=== PATIENT | female | born 1935 | race Caucasian/White ===

== ENCOUNTER 2020-11-18 08:43 | Emergency (ER) | payer MEDICARE, OTHER ==
[~2020-11-18] VITALS: Ht 167.6 cm; Wt 89.8 kg
--- NOTE | 2020-11-18 08:50 | NUR ---
CHILANGO KEATING from [employer] "More Altered than usual. BS-147". PT NON VERBAL EYES OPEN. VSS. RR EVEN & UNLABORED. PLACED ON ASSISTANT PROFESSOR, SR. PT SEEN & EVAL'D BY DR. REID. WILL CONT TO MONITOR.
[2020-11-18] MEDS ORDERED: AMLO10TA4 PO (09:09)
[2020-11-18] MEDS ORDERED: ACET-2605 PO (09:09)
[2020-11-18] MEDS ORDERED: NA P133E RC (09:09)
[2020-11-18] MEDS ORDERED: DOCU-141 PO (09:09)
[2020-11-18] MEDS ORDERED: THIA100T88 PO (09:09)
[2020-11-18] MEDS ORDERED: GLIP5TAB13 PO ×2 (09:09)
[2020-11-18] MEDS ORDERED: FOLI0.4T6 PO (09:09)
[2020-11-18] MEDS ORDERED: CEFD300C3 PO (09:09)
[2020-11-18] MEDS ORDERED: MAGN400O6 PO (09:09)
[2020-11-18] MEDS ORDERED: MELA3TAB41 PO (09:09)
[2020-11-18] MEDS ORDERED: BISA10SU11 RC (09:09)
[2020-11-18] MEDS ORDERED: SENN-175 PO (09:09)
[2020-11-18] MEDS ORDERED: GABA-532 PO (09:09)
[2020-11-18] MEDS ORDERED: INSU100V28 IJ (09:09)
[2020-11-18] MEDS ORDERED: LEVO125T8 PO (09:09)
[2020-11-18] MEDS ORDERED: ATOR10TA PO (09:09)
[2020-11-18] MEDS ORDERED: [UNRECOGNIZED DRUG - CODE] TP (09:09)
--- NOTE | 2020-11-18 09:09 | NUR ---
PT TO CT VIA [facility].
[2020-11-18 09:13] LABS: BASOPHILS % (AUTO) 0.2 % (0.0-2.0); EOSINOPHILS % (AUTO) 1.1 % (0.0-6.0); HEMATOCRIT 33 % (33-45); LYMPHOCYTES # (AUTO) 1.4 /CMM (0.8-4.8); LYMPHOCYTES % (AUTO) 9.9 % (20.0-44.0); MEAN CORPUSCULAR HGB CONC 33 g/dl (31.0-36.0); MEAN CORPUSCULAR VOLUME 88 fL (82-100); MONOCYTES # (AUTO) 0.7 /CMM (0.1-1.30); MONOCYTES % (AUTO) 5.2 % (2.0-12.0); NEUTROPHILS # (AUTO) 11.3 /CMM (1.8-8.9); NEUTROPHILS % (AUTO) 83.6 % (43.0-81.0); PLATELET COUNT (AUTO) 239 /CMM (150-450); RED BLOOD CELL COUNT(AUTO) 3.81 MIL/uL (4.0-5.2); WHITE BLOOD COUNT (AUTO) 13.6 K/uL (4.3-11.0)
[2020-11-18 09:46] LABS: CALCIUM, SERUM 9.4 mg/dL (8.5-10.1); CARBON DIOXIDE 20 mmol/L (21-32); CHLORIDE 108 mmol/L (98-107); CREATININE 1.6 mg/dL (0.6-1.3); GLUCOSE 140 mg/dL (74-106); POTASSIUM 4.5 mmol/L (3.5-5.1); SODIUM SERUM 143 mmol/L (136-145); UREA NITROGEN, BLOOD 44 mg/dL (7-18)
[2020-11-18 09:48] LABS: SERUM AMMONIA 20 umol/L (11-32)
[2020-11-18 09:52] LABS: ALANINE AMINOTRANSFERASE 29 U/L (12-78); ALBUMIN 3.4 g/dL (3.4-5.0); ALCOHOL, BLOOD < 3 mg/dL (0-0); ALKALINE PHOSPHATASE 89 U/L (46-116); ASPARTATE AMINOTRANSFERASE 18 U/L (15-37); BILIRUBIN,DIRECT 0.2 mg/dL (0.0-0.2); TOTAL PROTEIN, SERUM 7.8 g/dL (6.4-8.2)
[2020-11-18 09:58] LABS: ACETAMINOPHEN 0 ug/ml (10-30)
[2020-11-18 10:18] LABS: THYROID STIMULATING HORMONE 2.968 uIU/mL (0.358-3.74)
--- NOTE | 2020-11-18 10:34 | NUR ---
PT AAOX3, VSS. RR EVEN & UNLABORED. DENIES CP, SOB, DIZZINESS, N/V AT THS TIME. WILL CONT TO MONITOR.
[2020-11-18 10:53] LABS: BILIRUBIN,URINE NEGATIVE (NEGATIVE); COLOR,URINE YELLOW (YELLOW); LEUKOCYTE ESTERASE ,URINE NEGATIVE (NEGATIVE); NITRITE, URINE NEGATIVE (NEGATIVE); PROTEIN,URINE 100 mg/dl (NEGATIVE); UGLUCOSE NEGATIVE (NEGATIVE); UROBILINOGEN,URINE 0.2 EU/dL (0.2)
[2020-11-18 11:21] LABS: BACTERIA,URINE None seen /HPF (None Seen); SQUAMOUS EPITHELIAL CELL,UR Few /HPF (None Seen); WBC,URINE 0-2 /HPF (0-3); YEAST,URINE Few /HPF (None Seen)
--- NOTE | 2020-11-18 12:24 | NUR ---
PT ENROUTE TO [facility] VIA BLS, REPORT GIVEN TO ODALYS TONG FOR GUILLERMO.
[2020-11-18 12:25] VITALS: BP 152/66
--- NOTE | 2020-11-18 12:26 | NUR ---
IV removed. Catheter intact and site benign. Pressure and 4x4 applied to site. No bleeding noted.
== END 2020-11-18 12:27 ==
LOC: ER 08:52
DX: G47.51 Confusional arousals (principal); R41.82 Altered mental status, unspecified; I10 Essential (primary) hypertension; E78.5 Hyperlipidemia, unspecified; E11.9 Type 2 diabetes mellitus without complications; F03.90 Unspecified dementia, unspecified severity, without behavioral disturbance, psychotic disturbance, mood disturbance, and anxiety; Z86.73 Personal history of transient ischemic attack (TIA), and cerebral infarction without residual deficits; Z98.890 Other specified postprocedural states; Z88.0 Allergy status to penicillin; Z79.82 Long term (current) use of aspirin; Z79.899 Other long term (current) drug therapy
CPT/HCPCS: 36415; 70450-TC; 71045-TC; 80048-TC; 80076-TC; 81001; 82140-TC; 84443-TC; 84484-TC; 85025-TC; 85730-TC; G0480

== ENCOUNTER 2020-12-26 16:22 | Emergency (ER) | payer MEDICARE, OTHER ==
[~2020-12-26] VITALS: Ht 167.6 cm; Wt 86.2 kg
[~2020-12-26 16:22] MED LIST: ACET-2605 PO; AMLO10TA4 PO; ATOR10TA PO; BISA10SU11 RC; CEFD300C3 PO; DOCU-141 PO; FOLI0.4T6 PO; GABA-532 PO; GLIP5TAB13 PO; INSU100V28 IJ; LEVO125T8 PO; MAGN400O6 PO; MELA3TAB41 PO; NA P133E RC; SENN-175 PO; THIA100T88 PO; [UNRECOGNIZED DRUG - CODE] TP
--- NOTE | 2020-12-26 16:39 | NUR ---
dr gleason at bedside for eval.
--- NOTE | 2020-12-26 16:56 | NUR ---
radiology at bedside for chest xray.
--- NOTE | 2020-12-26 17:03 | NUR ---
u/s tech at bedside for ble ultrasound.
[2020-12-26 17:12] LABS: BASOPHILS % (AUTO) 0.4 % (0.0-2.0); EOSINOPHILS % (AUTO) 4.3 % (0.0-6.0); HEMATOCRIT 32 % (33-45); HEMOGLOBIN 10.8 g/dL (11.5-14.8); LYMPHOCYTES % (AUTO) 13.9 % (20.0-44.0); MEAN CORPUSCULAR HGB CONC 34 g/dl (31.0-36.0); MEAN CORPUSCULAR VOLUME 87 fL (82-100); MONOCYTES # (AUTO) 0.5 /CMM (0.1-1.30); NEUTROPHILS # (AUTO) 5.5 /CMM (1.8-8.9); NEUTROPHILS % (AUTO) 74.4 % (43.0-81.0); PLATELET COUNT (AUTO) 224 /CMM (150-450); RED BLOOD CELL COUNT(AUTO) 3.66 MIL/uL (4.0-5.2); WHITE BLOOD COUNT (AUTO) 7.3 K/uL (4.3-11.0)
[2020-12-26 18:06] LABS: BILIRUBIN,TOTAL 1.3 mg/dL (0.2-1.0); CALCIUM, SERUM 9.1 mg/dL (8.5-10.1); CARBON DIOXIDE 22 mmol/L (21-32); CHLORIDE 102 mmol/L (98-107); CREATININE 1.5 mg/dL (0.6-1.3); GLUCOSE 185 mg/dL (74-106); POTASSIUM 4.8 mmol/L (3.5-5.1); SODIUM SERUM 138 mmol/L (136-145); UREA NITROGEN, BLOOD 37 mg/dL (7-18)
[2020-12-26 18:07] LABS: ALANINE AMINOTRANSFERASE 39 U/L (12-78); ALBUMIN 3.1 g/dL (3.4-5.0); ALKALINE PHOSPHATASE 100 U/L (46-116); ASPARTATE AMINOTRANSFERASE 32 U/L (15-37); B-TYPE NATRIURETIC PEPTIDE 390 PG/ML (0-125); BILIRUBIN,DIRECT 0.2 mg/dL (0.0-0.2); TOTAL PROTEIN, SERUM 7.5 g/dL (6.4-8.2)
--- NOTE | 2020-12-26 19:01 | NUR ---
PT=11.2 INR=1.06 PTT=26.5
--- NOTE | 2020-12-26 19:15 | NUR ---
DAUGHTER,LILIYA MERINO CALLED AT [phone] PENG
[2020-12-26] MEDS ORDERED: APIXABAN 5 MG TABLET PO STA (19:27)
[2020-12-26] MEDS ORDERED: APIX5TAB PO (19:32)
--- NOTE | 2020-12-26 19:44 | NUR ---
REPORT GIVEN TO MARINE MORROW INFORMING HIM THAT THE FIRST DOSE OF ELIQUIS WILL BE GIVEN HERE AND SHE NEEDS TO F/UP W/ PMD TO CONTINUE ELIQUIS X 3 MONTHS AND THAT SHE ALSO NEEDS A HEMATOLOGY CONSULT FOR THE DVT
--- NOTE | 2020-12-26 19:48 | NUR ---
JEFF GAVE AN ETA OF 2130 RETURNING TO FACILITY.
[2020-12-26] MEDS ORDERED: APIXABAN 5 MG TABLET ONE (19:54)
--- NOTE | 2020-12-26 21:54 | NUR ---
transported back to nursing facility. stable condition.
[2020-12-26 21:55] VITALS: BP 132/65
== END 2020-12-26 21:56 ==
LOC: ER 16:27
DX: I82.401 Acute embolism and thrombosis of unspecified deep veins of right lower extremity (principal); D64.9 Anemia, unspecified; F03.90 Unspecified dementia, unspecified severity, without behavioral disturbance, psychotic disturbance, mood disturbance, and anxiety; E78.5 Hyperlipidemia, unspecified; E11.9 Type 2 diabetes mellitus without complications; E03.9 Hypothyroidism, unspecified; Z86.73 Personal history of transient ischemic attack (TIA), and cerebral infarction without residual deficits; Z88.0 Allergy status to penicillin; Z79.899 Other long term (current) drug therapy; Z79.84 Long term (current) use of oral hypoglycemic drugs
CPT/HCPCS: 36415; 71045-TC; 80048-TC; 80076-TC; 82962-TC; 83735-TC; 83880; 84484-TC; 85025-TC; 85730-TC; 93970-TC

== ENCOUNTER 2021-02-17 13:18 | Inpatient (IN) | payer MEDICARE, OTHER ==
[~2021-02-17] VITALS: Ht 167.6 cm; Wt 87.5 kg
[~2021-02-17 13:18] MED LIST changes: +APIX5TAB PO
--- NOTE | 2021-02-17 13:41 | NUR ---
C/O ABDOMINAL DISCOMFORT AND BILATERAL LEG PAIN/SWELLING. PATIENT A/OX4, BREATHING EVEN AND UNLABORED, NO SOB NOTED. CHANGED INTO A GOWN, ATTACHED TO THE FOOTWEAR STITCHER. 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
[2021-02-17 13:42] LABS: BASOPHILS % (AUTO) 0.3 % (0.0-2.0); HEMATOCRIT 34 % (33-45); HEMOGLOBIN 11.2 g/dL (11.5-14.8); LYMPHOCYTES # (AUTO) 1.5 K/uL (0.8-4.8); LYMPHOCYTES % (AUTO) 21.1 % (20.0-44.0); MEAN CORPUSCULAR HGB CONC 33 g/dl (31.0-36.0); MEAN CORPUSCULAR VOLUME 86 fL (82-100); MONOCYTES # (AUTO) 0.5 K/uL (0.1-1.30); MONOCYTES % (AUTO) 6.9 % (2.0-12.0); NEUTROPHILS % (AUTO) 68.7 % (43.0-81.0); PLATELET COUNT (AUTO) 177 K/uL (150-450); RED BLOOD CELL COUNT(AUTO) 3.97 MIL/uL (4.0-5.2); WHITE BLOOD COUNT (AUTO) 7.2 K/uL (4.3-11.0)
[2021-02-17 13:50] LABS: CALCIUM, SERUM 9.1 mg/dL (8.5-10.1); CARBON DIOXIDE 23 mmol/L (21-32); CHLORIDE 106 mmol/L (98-107); CREATININE 1.4 mg/dL (0.6-1.3); GLUCOSE 150 mg/dL (74-106); POTASSIUM 4.8 mmol/L (3.5-5.1); SODIUM SERUM 139 mmol/L (136-145); UREA NITROGEN, BLOOD 39 mg/dL (7-18)
[2021-02-17 13:56] LABS: ALANINE AMINOTRANSFERASE 21 U/L (12-78); ALBUMIN 3.5 g/dL (3.4-5.0); ALKALINE PHOSPHATASE 104 U/L (46-116); ASPARTATE AMINOTRANSFERASE 13 U/L (15-37); BILIRUBIN,DIRECT 0.2 mg/dL (0.0-0.2); BILIRUBIN,TOTAL 0.7 mg/dL (0.2-1.0); LIPASE 61 U/L (73-393); TOTAL PROTEIN, SERUM 7.6 g/dL (6.4-8.2)
[2021-02-17] MEDS ORDERED: LEVO150C2 PO (14:45)
[2021-02-17] MEDS ORDERED: METF-440 PO (14:45)
[2021-02-17] MEDS ORDERED: APIX2.5T PO (14:45)
[2021-02-17] MEDS ORDERED: ROSU5TAB13 PO (14:45)
[2021-02-17] MEDS ORDERED: LINA5TAB PO (14:45)
[2021-02-17] MEDS ORDERED: TELM1TAB6 PO (14:45)
--- NOTE | 2021-02-17 14:54 | NUR ---
covid swab sent. DUPLEX DONE.
[2021-02-17] MEDS ORDERED: ONDANSETRON HCL/PF 4 MG/2 ML VIAL ONE (15:00)
[2021-02-17] MEDS ORDERED: IV LR 500 ML IV ONE (15:00)
[2021-02-17] MEDS ORDERED: ONDANSETRON HCL/PF 4 MG/2 ML VIAL IV ONE (15:00)
[2021-02-17] MEDS ORDERED: CT SWABBABLE VALVE TRANS SET 1 EA INFUS.SET MC ONE (15:05)
[2021-02-17] MEDS ORDERED: IV NS 0.9% 250 ML IV ONE (15:05)
[2021-02-17] MEDS ORDERED: IOHEXOL-300 100 ML VIAL IV ONE (15:05)
[2021-02-17 15:49] LABS: BILIRUBIN,URINE Negative (NEGATIVE); COLOR,URINE YELLOW (YELLOW); LEUKOCYTE ESTERASE ,URINE Small (NEGATIVE); NITRITE, URINE Positive (NEGATIVE); PH,URINE 6.5 (5.0-8.0); PROTEIN,URINE 100 mg/dl (NEGATIVE); UGLUCOSE Negative (NEGATIVE); UROBILINOGEN,URINE 0.2 EU/dL (0.2)
--- NOTE | 2021-02-17 15:51 | NUR ---
[facility] CALLED [employer].
--- NOTE | 2021-02-17 16:16 | NUR ---
The patient is taken to radiology
--- NOTE | 2021-02-17 16:18 | NUR ---
PER DAUGHTER, PATIENT IS A JEHOVA WITNESS. NO BLOOD TRANSFUSION AT ALL.
[2021-02-17 16:20] LABS: BACTERIA,URINE 2+ /HPF (None Seen); RBC,URINE NONE SEEN /HPF (0-2); SQUAMOUS EPITHELIAL CELL,UR Few /HPF (None Seen)
[2021-02-17] MEDS ORDERED: ONDANSETRON HCL/PF 4 MG/2 ML VIAL IVP PRN (16:30)
[2021-02-17] MEDS ORDERED: ACETAMINOPHEN 325 MG TABLET PO PRN (16:30)
[2021-02-17] MEDS ORDERED: Z GUARD REMEDY 2 OZ OINT TP PRN (16:30)
[2021-02-17] MEDS ORDERED: MAGNESIUM HYDROXIDE 30 ML UDC PO PRN (16:30)
[2021-02-17] MEDS ORDERED: ZOLPIDEM TARTRATE 5 MG TABLET PO PRN (16:30)
[2021-02-17] MEDS ORDERED: DIATR MEGLU/DIATRIZOATE SODIUM 120 ML BOTTLE (GASTROGRAPHIN) ONE (16:32)
--- NOTE | 2021-02-17 17:01 | NUR ---
COVID PENDING, MACHINE IS BROKEN PER CLS KARI
--- NOTE | 2021-02-17 18:05 | NUR ---
covid swab done and sent to the lab
--- NOTE | 2021-02-17 18:32 | NUR ---
room 308-2
[2021-02-17 18:50] VITALS: BP 129/75
--- NOTE | 2021-02-17 18:54 | NUR ---
Report given to nurse Margo, the patient is transfered to assigned room in stable condition and per policy.
--- NOTE | 2021-02-17 19:20 | NUR ---
MS/RN ADMITTING NOTE RECEIVED PATIENT RESTING IN BED. AWAKE, ALERT AND ORIENTED X 4. ABLE TO MAKE NEEDS KNOWN. PATIENT BEING ADMITTED FOR SMALL BOWEL OBSTRUCTION. ENDORSES MILD PAIN TO ABDOMEN BUT STATES SHE DOES NOT WANT PAIN MEDICATION AT THIS TIME. PATIENT DENIES N/V. ABDOMEN DISTENDED AND TENDER TO TOUCH. IV ACCESS TO RIGHT AC INTACT, PATENT AND SALINE LOCKED. SKIN CHECK PERFORMED WITH NO SKIN ISSUES NOTED. ID BAND PLACED. VS ON ADMISSION: BP 129/73 HR 69 RR 20 T 97.5 O2 SAT 98% RA. WEIGHT ON ADMISSION IS 193. ORIENTED PATIENT TO CALL LIGHT, ROOM AND UNIT. CALL LIGHT WITHIN REACH. ASPIRATION, FALL AND SAFETY PRECAUTIONS MAINTAINED. WILL CONTINUE TO MONITOR.
[2021-02-17] MEDS: IV NS 0.9% 1,000 ML IV PRN (19:53)
[2021-02-17 20:00] VITALS: BP 129/73
[2021-02-17] MEDS ORDERED: ENOXAPARIN SODIUM 40 MG/0.4 ML DISP.SYRIN SQ SCH (20:00)
--- NOTE | 2021-02-17 20:30 | NUR ---
MS/RN NOTE SPOKE WITH PATIENTS DAUGHTER KYRIE. GAVE UPDATE ON PATIENT. KYRIE'S PHONE # [phone]
--- NOTE | 2021-02-17 21:00 | NUR ---
MS/RN NOTE PATIENT HAS ALLERGY TO PENICILLINS. PATIENT STATES ALLERGY IS FROM CHILDHOOD AND PATIENT IS UNSURE WHAT THE REACTION WAS. PHARMACY AND MD OATES AWARE. PER PHARM AND MD OATES GIVE FIRST DOSE OF CEFTRIAXONE AND MONITOR FOR REACTION.
[2021-02-17] MEDS: CEFTRIAXONE 1 G in IV D5W 50 ML IV SCH (21:13)
--- NOTE | 2021-02-17 21:49 | NUR ---
MS/RN NOTE PATIENT COMPLETED DOSE OF IV CEFTRIAXONE. NO ALLERGIC REACTIONS NOTED. PATIENT CURRENTLY SLEEPING IN BED. TEMP IS 97.6. NO S/SX OF RESPIRATORY DISTRESS NOTED. WILL CONTINUE TO MONITOR.
--- NOTE | 2021-02-17 23:06 | NUR ---
MS/RN NOTE PATIENT HAD LARGE, LOOSE BM TONIGHT. NO C/O ABDOMINAL PAIN. CONTINUES ON NPO STATUS WITH IVF RUNNING. WILL CONTINUE TO MONITOR.
[2021-02-18] MEDS: IV NS 0.9% 1,000 ML IV PRN ×2 (06:04→20:26)
--- NOTE | 2021-02-18 06:30 | NUR ---
MS/RN CLOSING NOTE PATIENT CURRENTLY RESTING IN BED. AWAKE, ALERT AND ORIENTED X 4. ABLE TO MAKE NEEDS KNOWN. DENIES PAIN AT THIS TIME. IV ACCESS TO RIGHT AC #18G INTACT AND PATENT. CONTINUES ON IVF AND IV ABX. PATIENT HAD 2 BM'S TONIGHT. DENIES N/V. CONTINUES ON NPO STATUS. CALL LIGHT WITHIN REACH. ASPIRATION, FALL AND SAFETY PRECAUTIONS MAINTAINED. WILL ENDORSE PLAN OF CARE TO ONCOMING SHIFT.
[2021-02-18 06:54] LABS: BASOPHILS % (AUTO) 0.4 % (0.0-2.0); EOSINOPHILS % (AUTO) 5.5 % (0.0-6.0); HEMATOCRIT 31 % (33-45); LYMPHOCYTES # (AUTO) 1.4 K/uL (0.8-4.8); MEAN CORPUSCULAR HGB CONC 33 g/dl (31.0-36.0); MEAN CORPUSCULAR VOLUME 87 fL (82-100); MONOCYTES # (AUTO) 0.4 K/uL (0.1-1.30); MONOCYTES % (AUTO) 7.8 % (2.0-12.0); NEUTROPHILS # (AUTO) 3.1 K/uL (1.8-8.9); NEUTROPHILS % (AUTO) 59.3 % (43.0-81.0); PLATELET COUNT (AUTO) 160 K/uL (150-450); RED BLOOD CELL COUNT(AUTO) 3.53 MIL/uL (4.0-5.2); WHITE BLOOD COUNT (AUTO) 5.2 K/uL (4.3-11.0)
[2021-02-18 07:13] LABS: CALCIUM, SERUM 8.4 mg/dL (8.5-10.1); CARBON DIOXIDE 25 mmol/L (21-32); CHLORIDE 111 mmol/L (98-107); CREATININE 1.4 mg/dL (0.6-1.3); GLUCOSE 91 mg/dL (74-106); MAGNESIUM 1.8 mg/dL (1.8-2.4); PHOSPHORUS 3.6 mg/dL (2.5-4.9); POTASSIUM 4.2 mmol/L (3.5-5.1); SODIUM SERUM 146 mmol/L (136-145); UREA NITROGEN, BLOOD 30 mg/dL (7-18)
[2021-02-18 07:25] LABS: CHOLESTEROL 110 mg/dL (<200); HDL CHOLESTEROL 30 mg/dL (40-60); LDL 58 mg/dL (0-99); TRIGLYCERIDES 122 mg/dL (30-150)
[2021-02-18 08:00] VITALS: BP 128/65
--- NOTE | 2021-02-18 08:11 | NUR ---
MS/RN OPENING NOTE RECEIVED PATIENT IN BED. AWAKE, ALERT AND ORIENTED X 4. ABLE TO MAKE NEEDS KNOWN. DENIES PAIN AT THIS TIME. IV ACCESS TO RIGHT AC #18G INTACT AND PATENT. CONTINUES ON IVF AND IV ABX. CONTINUES ON NPO STATUS. CALL LIGHT WITHIN REACH. ASPIRATION, FALL AND SAFETY PRECAUTIONS MAINTAINED. WILL CONTINUE TO MONITOR PATIENT.
--- NOTE | 2021-02-18 19:14 | NUR ---
MS/RN CLOSING NOTE PATIENT IN BED. AWAKE, ALERT AND ORIENTED X 4. ABLE TO MAKE NEEDS KNOWN. DENIES PAIN AT THIS TIME. DIET ADVANCED TO FULL LIQUID, ABLE TO TOLERATE. IV ACCESS TO RIGHT AC #18G INTACT AND PATENT WITH A RUNNING NS @75ML/HR. CONTINUES ON IV ABX. FALL AND SAFETY PRECAUTIONS MAINTAINED. BED LOCKED ON LOWEST POSITION, SIDE RAILS UPX2, CALL LIGHT WITHIN REACH. WILL ENDORSE TO THE NEXT SHIFT FOR CONTINUITY OF CARE.
--- NOTE | 2021-02-18 19:37 | NUR ---
MS RN OPENING NOTE PATIENT A/OX2; ABLE TO MAKE NEEDS KNOWN. TOLERATING ROOM AIR WELL WITH NO SOB. NO S/SX OF PAIN OR DISCOMFORT AT THIS TIME. RAC #18G INFUSING NS @ 75 ML/HR; PATENT AND INTACT. SAFETY MEASURES IN PLACE: BED IN LOWEST LOCKED POSITION, SIDE RAILS UPX2, CALL LIGHT WITHIN EASY REACH, BED ALARMS ON. PATIENT IN STABLE CONDITION; WILL CONTINUE PLAN OF CARE.
[2021-02-18 20:00] VITALS: BP 127/76
[2021-02-18] MEDS: CEFTRIAXONE 1 G in IV D5W 50 ML IV SCH (20:19)
[2021-02-18] MEDS: METFORMIN 500 MG TABLET PO SCH (20:22)
[2021-02-18] MEDS: APIXABAN 2.5 MG TABLET PO SCH (20:23)
[2021-02-18] MEDS ORDERED: ATORVASTATIN 10 MG TABLET PO SCH (22:00)
--- NOTE | 2021-02-19 07:05 | NUR ---
MSRN OPENING NOTE PATIENT A/OX2; ABLE TO MAKE NEEDS KNOWN. TOLERATING ROOM AIR WELL WITH NO SOB. NO S/SX OF PAIN OR DISCOMFORT AT THIS TIME. RAC 18 INFUSING NS @ 75 ML/HR; PATENT AND INTACT. SAFETY MEASURES IN PLACE: BED IN LOWEST LOCKED POSITION, SIDE RAILS UPX2, CALL LIGHT WITHIN EASY REACH AND ANSWERED PROMPTLY, BED ALARM ON.
[2021-02-19] MEDS ORDERED: LEVOTHYROXINE SODIUM 75 MCG TABLET PO SCH (07:30)
--- NOTE | 2021-02-19 07:35 | NUR ---
MS RN CLOSING NOTE PATIENT A/OX2; ABLE TO MAKE NEEDS KNOWN. TOLERATING ROOM AIR WELL WITH NO SOB. NO S/SX OF PAIN OR DISCOMFORT AT THIS TIME. RAC #18G INFUSING NS @ 75 ML/HR; PATENT AND INTACT. SAFETY MEASURES IN PLACE: BED IN LOWEST LOCKED POSITION, SIDE RAILS UPX2, CALL LIGHT WITHIN EASY REACH, BED ALARMS ON. PATIENT IN STABLE CONDITION; ENDORSED PLAN OF CARE TO ONCOMING MORNING RN.
--- NOTE | 2021-02-19 07:47 | NUR ---
MS/RN OPENING NOTE RECEIVED PATIENT IN BED. AWAKE, ALERT AND ORIENTED X 4. ABLE TO MAKE NEEDS KNOWN. DENIES PAIN AT THIS TIME. IV ACCESS TO RIGHT AC #18G INTACT AND PATENT. CONTINUES ON IVF AND IV ABX. ON FULL LIQUID DIET. FALL AND SAFETY PRECAUTIONS MAINTAINED. CALL LIGHT WITHIN REACH. WILL CONTINUE TO MONITOR PATIENT.
[2021-02-19 08:00] VITALS: BP 146/64
[2021-02-19] MEDS: METFORMIN 500 MG TABLET PO SCH ×2 (08:01→09:01)
[2021-02-19] MEDS ORDERED: LINAGLIPTIN 5 MG TABLET PO SCH (09:00)
[2021-02-19] MEDS ORDERED: LOSARTAN/HCTZ 50-12.5MG/ 1 EA TABLET PO SCH (09:00)
[2021-02-19 09:01] VITALS: BP 146/64
[2021-02-19] MEDS: APIXABAN 2.5 MG TABLET PO SCH (09:02)
--- NOTE | 2021-02-19 11:00 | NUR ---
MS/RN NOTES PATIENT'S DAUGHTER HUMZA CALLED AND SAID SHES BEEN CALLING HER MOM BUT HER MOM IS NOT PICKING UP. RN WENT TO PATIENT'S ROOM AND SAW PATIENT ASLEEP. TOLD THE DAUGHTER HER MOM IS ASLEEP AND ADVISE HER TO CALL AGAIN LATER. DAUGHTER AGREED.
[2021-02-19] MEDS ORDERED: CEPH250S PO (11:14)
[2021-02-19 11:51] LABS: BASOPHILS % (AUTO) 0.3 % (0.0-2.0); EOSINOPHILS % (AUTO) 5.3 % (0.0-6.0); HEMATOCRIT 32 % (33-45); HEMOGLOBIN 10.5 g/dL (11.5-14.8); LYMPHOCYTES % (AUTO) 17.2 % (20.0-44.0); MEAN CORPUSCULAR HGB CONC 34 g/dl (31.0-36.0); MEAN CORPUSCULAR VOLUME 86 fL (82-100); MONOCYTES # (AUTO) 0.4 K/uL (0.1-1.30); MONOCYTES % (AUTO) 6.5 % (2.0-12.0); NEUTROPHILS % (AUTO) 70.7 % (43.0-81.0); PLATELET COUNT (AUTO) 157 K/uL (150-450); RED BLOOD CELL COUNT(AUTO) 3.67 MIL/uL (4.0-5.2); WHITE BLOOD COUNT (AUTO) 5.7 K/uL (4.3-11.0)
[2021-02-19 11:59] LABS: CALCIUM, SERUM 8.2 mg/dL (8.5-10.1); CARBON DIOXIDE 28 mmol/L (21-32); CHLORIDE 106 mmol/L (98-107); CREATININE 1.4 mg/dL (0.6-1.3); GLUCOSE 177 mg/dL (74-106); SODIUM SERUM 143 mmol/L (136-145); UREA NITROGEN, BLOOD 19 mg/dL (7-18)
--- NOTE | 2021-02-19 14:30 | NUR ---
PATIENT IS MEDICALLY STABLE AND MD ORDERED DISCHARGE BACK TO [facility] IN [place] ([facility]). PATIENT IS ALERT AND ORIENTED X2-3, ABLE TO MAKE NEEDS KNOWN. BEDBOUND. STABLE ON ROOM AIR. CURRENTLY NO IV ACCESS. INTACT SKIN. DISCHARGE INSTRUCTIONS GIVEN TO THE PATIENT AND DAUGHTER. PATIENT PICKED UP BY A NON-EMERGENCY TRANSPORTATION TO BE TRANSPORTED BACK TO THE [facility]. Addendum: 02/19/21 at 1754 by KHOI MCCLENDON RN ERROR
--- NOTE | 2021-02-19 15:17 | NUR ---
MS/RN NOTES PATIENT PULLED OUT HER IV ACCESS ON RIGHT HAND. ANGE OATES NP NOTIFIED. WILL CONTINUE TO MONITOR.
--- NOTE | 2021-02-19 16:30 | NUR ---
MS/MANAGER OF REGULATORY AFFAIRS NOTES PATIENT IS MEDICALLY STABLE AND MD ORDERED DISCHARGE BACK TO [facility] IN [place] ([facility]). PATIENT IS ALERT AND ORIENTED X2-3, ABLE TO MAKE NEEDS KNOWN. BEDBOUND. STABLE ON ROOM AIR. CURRENTLY NO IV ACCESS. INTACT SKIN. DISCHARGE INSTRUCTIONS GIVEN TO THE PATIENT AND DAUGHTER. PATIENT PICKED UP BY A NON-EMERGENCY TRANSPORTATION TO BE TRANSPORTED BACK TO THE [facility] AND [facility].
== END 2021-02-19 17:00 | DRG 388 ==
LOC: ER 13:19 → TELE 18:37 → MED 18:43
PROVIDERS: ADMIT Nurse Practitioner Acute Care; ATTEND Nurse Practitioner Acute Care
DX: K56.600 Partial intestinal obstruction, unspecified as to cause (principal); N17.0 Acute kidney failure with tubular necrosis; N39.0 Urinary tract infection, site not specified; Z16.12 Extended spectrum beta lactamase (ESBL) resistance; E78.5 Hyperlipidemia, unspecified; F03.90 Unspecified dementia, unspecified severity, without behavioral disturbance, psychotic disturbance, mood disturbance, and anxiety; Z86.16 Personal history of COVID-19; Z86.718 Personal history of other venous thrombosis and embolism; Z86.73 Personal history of transient ischemic attack (TIA), and cerebral infarction without residual deficits; Z79.01 Long term (current) use of anticoagulants; Z88.0 Allergy status to penicillin; I12.9 Hypertensive chronic kidney disease with stage 1 through stage 4 chronic kidney disease, or unspecified chronic kidney disease; N18.9 Chronic kidney disease, unspecified; D63.8 Anemia in other chronic diseases classified elsewhere; B96.20 Unspecified Escherichia coli [E. coli] as the cause of diseases classified elsewhere; Z20.822 Contact with and (suspected) exposure to COVID-19; E11.9 Type 2 diabetes mellitus without complications; Z79.84 Long term (current) use of oral hypoglycemic drugs
CPT/HCPCS: 36415; 71045-TC; 74018; 74250-TC; 80048-TC; 80061-TC; 80076-TC; 81001; 83690-TC; 83735-TC; 83880; 84100-TC; 84484-TC; 85025-TC; 87081-TC; 87086-TC; 87186-TC; 93971-TC; C9803; G0378; J0696; J1650; J2405; J7030; J7050; J7060; J7120; Q9963; Q9967